=== PATIENT | female | born 1955 | race Caucasian/White ===

== ENCOUNTER 2018-04-22 08:28 | Day surgery (SDC) | payer MEDICAID ==
--- NOTE | 2018-04-19 11:00 | PREOPHP ---
DATE OF ADMISSION: 04/22/2018 HISTORY OF PRESENT ILLNESS: The patient is a 63-year-old female in overall good health, who recently had a breast imaging studies. This revealed in the left breast in the lower central area at 5 o'clock approximately 6 cm from the nipple, was an area of calcifications extending approximately 2 cm and ultrasound revealed a mass with calcifications. 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 The patient is scheduled to undergo excision biopsy with preoperative needle localization. MEDICATIONS: None. ALLERGIES: None. PAST SURGICAL HISTORY: Total abdominal hysterectomy and bilateral salpingo- oophorectomy in 2004. REVIEW OF SYSTEMS: 5, para 5. PHYSICAL EXAMINATION: GENERAL: The patient is 5 feet 1 inch, 135 pounds with normal vital signs. HEENT: Within normal limits. LUNGS: Clear. HEART: Regular rhythm. The breasts are full and ptotic. ABDOMEN: There is no palpable mass in either breast. There is no axillary or supraclavicular lymphadenopathy. PELVIC/RECTAL: per primary care EXTREMITIES: without edema NEUROLOGIC: physiologic IMPRESSION: Left breast ductal carcinoma in situ. PLAN: Full discussion has been held with the patient regarding the nature ofher condition and the nature of the surgery, indications, alternatives, options and risks including bleeding, infection, need for additional surgery based on final pathology, need for additional treatments based on final pathology, scarring, distortion of the breast, etc. All questions have been answered. The patient understands and agrees to proceed as an outpatient under general anesthesia with left breast biopsy with preoperative needle localization. Dictated By: NATE BENNETT MD DS/CONOR Conf#: [id number] DID#: [id number] CC: NATE BENNETT MD;*EndCC* MTDD
[2018-04-21 17:22] VITALS: BMI 23.6
[2018-04-22] VITALS (16 sets, daily range): BP systolic 128–160; BP diastolic 61–84; PULSE 55–79; RESP 15–20; Ht 157.5 cm; Wt 58.6 kg
[~2018-04-22] VITALS: Ht 157.5 cm; Wt 58.6 kg
[~2018-04-22 08:28] MED LIST: CEFAZOLIN 2 GM in SOD CHLORIDE 0.9% 50 ML IVPB SCH; SOD CHLORIDE 0.9% 1,000 ML IV SCH
--- NOTE | 2018-04-22 10:28 | HPN ---
Date/Time of Note Date/Time of Note DATE: 04/22/18 TIME: 10:28 Interval H&P Admission Note Pt. seen H&P reviewed: No system changes NATE BENNETT Apr 22, 2018 10:28
[2018-04-22] MEDS ORDERED: FENO145T37 PO (11:18)
[2018-04-22] MEDS ORDERED: FLUT16SP17 NASAL (11:18)
[2018-04-22] MEDS ORDERED: ISOSULFAN BLUE 1% 5 ML INJ SC ONE (15:26)
--- NOTE | 2018-04-22 15:26 | PREAC ---
Date/Time of Note Date/Time of Note DATE: 04/22/18 TIME: 15:24 Anesthesia Eval and Record Evaluation Time Pre-Procedure Interview DATE: 04/22/18 TIME: 15:24 Age 63 Sex female NPO: 8 hrs Preoperative diagnosis breast mass - ductal carcinoma Planned procedure excision of breast mass Past Medical History Past Medical History: Includes Cardio: Dyslipidemia Endo: Diabetes Surgery & Anesthesia Issues No known issue Meds Anticoagulation: No Beta Sonia within 24 hr: No Reason Beta Sonia not given: Pt. not on B-Sonia Reported Medications Fluticasone Propionate* (Fluticasone Propionate* Nasal) 50 Mcg/[place] - 16 Gm [place].susp, 1 SPRAY NASAL BID, #1 BOTTLE TO EACH NOSTRIL 04/22/18 Fenofibrate Nanocrystallized* (Fenofibrate*) 145 Mg Tablet, 145 MG PO DAILY, TAB 04/22/18 Current Medications Sodium Chloride 1,000 ml @ 75 mls/hr [id number] IV ; Start 04/22/18 at 06:00; Stop 04/22/18 at 23:00 Meds reviewed: Yes Allergies Coded Allergies: No Known Allergies (Verified Allergy, Unknown, 04/22/18) Allergies Reviewed: Yes Labs/Studies Labs Reviewed: Reviewed by anesthesiologist test: N/A Pre-procedure Exam Last vitals Vital Signs Date Temp Pulse Resp B/P (MAP) Pulse Ox O2 O2 Flow FiO2 Time Delivery Rate 04/22/18 97.1 55 16 128/61 96 12:33 (83) Airway: Adequate mouth opening, Adequate thyromental dist Mallampati: Mallampati IV Teeth: Normal Lung: Normal Heart: Normal ASA Physical Status ASA physical status: 2 Emergency: None Pre-operative Attestations Prior to commencing anesthesia and surgery, the patient was re-evaluated, there was verification of: *The patient's identity *The results of appropriate recent lab work and preoperative vital signs *The above evaluation not changing prior to induction *Anesthetic plan, risk benefits, alternative and complications discussed with patient/family; questions answered; patient/family understands, accepts and wishes to proceed. LETA PERRY DO Apr 22, 2018 15:26
[2018-04-22] MEDS ORDERED: LABETALOL HCL 20MG INJ IV PRN (15:30)
[2018-04-22] MEDS ORDERED: OXYCODONE/ACETAMINOPHEN (5/325) TAB PO PRN (15:30)
[2018-04-22] MEDS ORDERED: hydrALAzine 20 MG INJ IV PRN (15:30)
[2018-04-22] MEDS ORDERED: ONDANSETRON 4 MG INJ IV PRN (15:30)
[2018-04-22] MEDS ORDERED: PROPOFOL 20 ML ONE (15:48)
[2018-04-22] MEDS ORDERED: LIDOCAINE 2% (SDV) 5 ML INJ ONE (15:48)
[2018-04-22] MEDS ORDERED: CEFAZOLIN 1 GM INJ ONE (15:58)
[2018-04-22] MEDS ORDERED: FENTAnyl 50 MCG/ML VIAL ONE (15:59)
[2018-04-22] MEDS ORDERED: ROPIVACAINE 0.2% 20 ML VIAL ONE (16:28)
--- NOTE | 2018-04-22 16:33 | SIPON ---
Date/Time of Note Date/Time of Note DATE: 04/22/18 TIME: 16:32 Operative Report Preoperative Diagnosis ductal carcinoma in situ left breast Postoperative Diagnosis same Operation/Procedure Performed left breast biopsy with pre-op needle localization Surgeon see signature line dietary assistant none Anesthesia: general Estimated blood loss: minimal Transfusion Required none Specimen left breast tissue Grafts/Implants none Complications none NATE BENNETT Apr 22, 2018 16:33
[2018-04-22] MEDS ORDERED: ONDANSETRON 4 MG INJ ONE (16:41)
--- NOTE | 2018-04-22 16:55 | PAC ---
Date/Time of Note Date/Time of Note DATE: 04/22/18 TIME: 16:55 Post-Anesthesia Notes Post-Anesthesia Note Last documented vital signs Vital Signs Date Temp Pulse Resp B/P (MAP) Pulse Ox O2 O2 Flow FiO2 Time Delivery Rate 04/22/18 98 80 16 123/59 97 1655 Activity: WNL Respiratory function: WNL Cardiovascular function: WNL Mental status: Baseline Pain reasonably controlled: Yes Hydration appropriate: Yes Nausea/Vomiting absent: Yes LETA PERRY DO Apr 22, 2018 16:55
--- NOTE | 2018-04-22 17:03 | OPR ---
DATE OF OPERATION: 04/22/2018 SURGEON: Dr. Nate Menchaca. PREPRESS STRIPPER: None. ANESTHESIOLOGIST: Dr. Joey Hubbard. TYPE OF ANESTHESIA: General. PREOPERATIVE DIAGNOSIS: Ductal carcinoma in situ, left breast. POSTOPERATIVE DIAGNOSIS: Ductal carcinoma in situ, left breast. OPERATION PERFORMED: Left breast partial mastectomy with preoperative needle localization. DESCRIPTION OF PROCEDURE: The patient was taken to the operating room and under general anesthesia with sequential compression device stockings in place, she was prepped and draped in the usual fashion. The lesion was located at approximately 5 o'clock, 6 cm from the nipple with a 2 cm mass by ultrasound with core biopsy revealing DCIS. A curvilinear incision was made in the inferior breast tissue. Hemostasis was achieved with cautery. Flaps were dissected circumferentially and the wire brought into the field. The appropriate sector of breast tissue was removed with hemostasis achieved with cautery and with suture markers orienting the specimen anterior, medial and superior. The specimen was given for specimen radiography and then for pathology. The field was irrigated and hemostasis was secure. The incision was closed with interrupted 3-0 Vicryl deep dermal subcutaneous sutures followed by continuous 4-0 Monocryl subcuticular suture. Mastisol and 1/2-inch Steri-Strips were applied, followed by dry sterile dressing. Final sponge and needle counts were correct. The patient tolerated the procedure well and left the operating room in good condition. Dictated By: NATE GUILLORY/CONOR Conf#: [id number] DID#: [id number] MTDD
[2018-04-22] MEDS: HYDROmorphONE 1 MG/5 ML IV SYRINGE IV PRN ×2 (17:23→17:43)
== END 2018-04-22 18:46 | disposition home or self-care (01) ==
LOC: SDS 08:28
PROVIDERS: ATTEND Surgery
DX: D05.12 Intraductal carcinoma in situ of left breast (principal); E78.5 Hyperlipidemia, unspecified; E11.9 Type 2 diabetes mellitus without complications
CPT/HCPCS: 19301; 88307; J0690; J1170; J2405; J2795; J3010; Z7512; Z7610; Q9968

== ENCOUNTER 2018-06-29 10:25 | Day surgery (SDC) | payer MEDICAID ==
--- NOTE | 2018-06-27 15:18 | PREOPHP ---
DATE OF ADMISSION: 06/29/2018 Scheduled for outpatient surgery 06/29/2018. HISTORY OF PRESENT ILLNESS: The patient is a 63-year-old female in overall good health who underwent surgery 04/22/2018 involving left breast biopsy with preoperative needle localization with a preoperative diagnosis of ductal carcinoma in situ. Postoperatively, pathology revealed ductal carcinoma in situ, but also invasive ductal carcinoma that was within the specimen measuring 0.4 cm in greatest diameter. The patient is now scheduled to undergo left axillary sentinel lymph node biopsy for staging. PAST MEDICAL HISTORY: MEDICATIONS: None. ALLERGIES: None. PAST SURGICAL HISTORY: Total abdominal hysterectomy and bilateral salpingo- oophorectomy 2004, left breast biopsy 04/22/2018. REVIEW OF SYSTEMS: 5, para 5. PHYSICAL EXAMINATION: GENERAL: The patient is 5 feet 1 inches, 135 pounds. Stable vital signs. HEENT: Within normal limits. LUNGS: Clear. HEART: Regular rhythm. The breasts are moderately large and ptotic. There is a healing incision in the lower outer quadrant of the left breast. Right breast unremarkable. There is no palpable axillary or supraclavicular lymphadenopathy. ABDOMEN: Soft. Pelvic and rectal per primary care. EXTREMITIES: Without edema. NEUROLOGIC: Physiologic. ASSESSMENT: Invasive ductal carcinoma of the left breast as well as ductal carcinoma in situ. PLAN: Left axillary sentinel lymph node biopsy. After full discussion with the patient regarding the nature of her condition, the nature of the surgery, indications, alternatives, options and risks including bleeding, infection, need for additional treatments based on final pathology, possible need for a drain, neuritis and neuralgia, etc. All questions have been answered. The patient understands and agrees to proceed. Dictated By: NATE GUILLORY/CONOR Conf#: [id number] DID#: [id number] EDDA
[~2018-06-29] VITALS: Ht 154.9 cm; Wt 65.5 kg
[2018-06-29] VITALS (13 sets, daily range): BP systolic 109–143; BP diastolic 41–65; PULSE 57–72; RESP 13–23; Ht 154.9 cm; Wt 65.5 kg
--- NOTE | 2018-06-29 09:59 | PREAC ---
Date/Time of Note Date/Time of Note DATE: 06/29/18 TIME: 09:58 Anesthesia Eval and Record Evaluation Time Pre-Procedure Interview DATE: 06/29/18 TIME: 09:58 Age 63 Sex female NPO: 8 hrs Preoperative diagnosis ductal carcinoma of the left breast Planned procedure left axillary sentinel lymph node biopsy Past Medical History Past Medical History: Includes Cardio: Dyslipidemia Endo: Other (prediabetic) Surgery & Anesthesia Issues No known issue Meds Anticoagulation: No Beta Sonia within 24 hr: No Reason Beta Sonia not given: Pt. not on B-Sonia Reported Medications Fluticasone Propionate* (Fluticasone Propionate* Nasal) 50 Mcg/[place] - 16 Gm [place].susp, 1 SPRAY NASAL BID, #1 BOTTLE TO EACH NOSTRIL 04/22/18 Fenofibrate Nanocrystallized* (Fenofibrate*) 145 Mg Tablet, 145 MG PO DAILY, TAB 04/22/18 Current Medications Cefazolin Sodium/ Dextrose 50 ml @ 100 mls/hr PREOP IVPB ; Start 06/29/18 at 06:00; Stop 06/29/18 at 17:00 Sodium Chloride 1,000 ml @ 75 mls/hr [id number] IV ; Start 06/29/18 at 06:00; Stop 06/29/18 at 17:00 Meds reviewed: Yes Allergies Coded Allergies: No Known Allergies (Verified Allergy, Unknown, 06/29/18) Allergies Reviewed: Yes Labs/Studies Labs Reviewed: Reviewed by anesthesiologist test: N/A Pre-procedure Exam Airway: Adequate mouth opening, Adequate thyromental dist Mallampati: Mallampati II Teeth: Normal Lung: Normal Heart: Normal ASA Physical Status ASA physical status: 2 Emergency: None Planned Anesthetic General/MAC: LMA Planned Pain Management Parenteral pain med, Local by surgeon Pre-operative Attestations Prior to commencing anesthesia and surgery, the patient was re-evaluated, there was verification of: *The patient's identity *The results of appropriate recent lab work and preoperative vital signs *The above evaluation not changing prior to induction *Anesthetic plan, risk benefits, alternative and complications discussed with patient/family; questions answered; patient/family understands, accepts and wishes to proceed. RENATO CARRIZALES June 29, 2018 09:59
[~2018-06-29 10:25] MED LIST changes: -CEFAZOLIN 2 GM in SOD CHLORIDE 0.9% 50 ML IVPB SCH; +CEFAZOLIN 2 GM/50 ML (PMX) 50 ML IVPB SCH; +FENO145T37 PO; +FLUT16SP17 NASAL
[2018-06-29] MEDS ORDERED: MEPERIDINE 25 MG INJ IV PRN (11:00)
[2018-06-29] MEDS ORDERED: ONDANSETRON 4 MG INJ IV PRN (11:00)
[2018-06-29] MEDS ORDERED: OXYCODONE/ACETAMINOPHEN (5/325) TAB PO PRN ×2 (11:00)
[2018-06-29] MEDS ORDERED: HYDROmorphONE 1 MG/5 ML IV SYRINGE IV PRN ×3 (11:00)
[2018-06-29] MEDS ORDERED: ISOSULFAN BLUE 1% 5 ML INJ SC ONE (11:35)
[2018-06-29] MEDS ORDERED: LIDOCAINE 2% (SDV) 5 ML INJ ONE (11:52)
[2018-06-29] MEDS ORDERED: MIDAZOLAM 1 MG/ML 2 ML INJ ONE (11:52)
[2018-06-29] MEDS ORDERED: CEFAZOLIN 1 GM INJ ONE (11:52)
[2018-06-29] MEDS ORDERED: PROPOFOL 20 ML ONE (11:52)
[2018-06-29] MEDS ORDERED: FENTAnyl 50 MCG/ML VIAL ONE (11:52)
--- NOTE | 2018-06-29 12:23 | HPN ---
Date/Time of Note Date/Time of Note DATE: 06/29/18 TIME: 12:22 Interval H&P Admission Note Pt. seen H&P reviewed: No system changes NATE BENNETT June 29, 2018 12:22
[2018-06-29] MEDS ORDERED: ONDANSETRON 4 MG INJ ONE (12:39)
[2018-06-29] MEDS ORDERED: DEXAMETHASONE 4 MG/ML 5 ML INJ ONE (12:39)
[2018-06-29] MEDS ORDERED: METOCLOPRAMIDE 10 MG INJ ONE (12:39)
[2018-06-29] MEDS ORDERED: FAMOTIDINE 20 MG INJ ONE (12:39)
--- NOTE | 2018-06-29 13:34 | SIPON ---
Date/Time of Note Date/Time of Note DATE: 06/29/18 TIME: 13:33 Operative Report Preoperative Diagnosis carcinoma left breast Postoperative Diagnosis same Operation/Procedure Performed left axillary sentinel lymph node biopsy Surgeon see signature line assistant director of security none Anesthesia: general Estimated blood loss: none Transfusion Required none Specimen left axillary sentinel lymph nodes Grafts/Implants none Complications none NATE BENNETT June 29, 2018 13:34
--- NOTE | 2018-06-29 13:37 | PAC ---
Date/Time of Note Date/Time of Note DATE: 06/29/18 TIME: 13:36 Post-Anesthesia Notes Post-Anesthesia Note Last documented vital signs BP 140/44 HR 72 TEMP 98.0 SPO2 100 RR 16 Vital Signs Date Temp Pulse Resp B/P (MAP) Pulse Ox O2 O2 Flow FiO2 Time Delivery Rate 06/29/18 98.1 57 16 143/65 100 Room Air 11:25 (91) Activity: WNL Respiratory function: WNL Cardiovascular function: WNL Mental status: Baseline Pain reasonably controlled: Yes Hydration appropriate: Yes Nausea/Vomiting absent: Yes RENATO CARRIZALES June 29, 2018 13:37
--- NOTE | 2018-06-29 17:01 | OPR ---
DATE OF OPERATION: 06/29/2018 SURGEON: Nate Hardwick MD HUMAN RESOURCES MANAGER MANUFACTURING: None. ANESTHESIOLOGIST: Nabil Scott CRNA TYPE OF ANESTHESIA: General. PREOPERATIVE DIAGNOSIS: Invasive ductal carcinoma, left breast. POSTOPERATIVE DIAGNOSIS: Invasive ductal carcinoma, left breast. OPERATION PERFORMED: Left axillary sentinel lymph node biopsy. INDICATIONS: The patient previously had an area of ductal carcinoma in situ in the left breast that was resected as a partial mastectomy. Within the specimen was found a 4 mm invasive ductal carcinoma. The patient now returns to surgery for sentinel axillary lymph node biopsy. DESCRIPTION OF PROCEDURE: The patient was taken to the operating room and under general anesthesia with sequential compression device stockings in place, she was prepped and draped in the usual fashion. Before prepping and draping, 3 mL of Lymphazurin was injected at 2 o'clock at the areolar border in the dermal layer. A vertical curvilinear left axillary incision was made, achieving hemostasis with cautery and incising the clavipectoral fascia. The blue-green dye was readily identified with several adjacent lymph nodes. This area was resected using the LigaSure electrosurgical device. The pathologist confirmed the presence of several lymph nodes within the specimen. The field was irrigated and hemostasis was completely secured. In view of the limited dissection, I did not think a drain was necessary. The clavipectoral fascia was closed with interrupted 3-0 Vicryl as was the subcutaneous tissues. Skin was closed with continuous 4-0 Monocryl subcuticular suture. Mastisol and 1/2-inch Steri-Strips were applied, followed by dry sterile dressing. Final sponge and needle counts were correct. The patient tolerated the procedure well and left the operating room in good condition. Dictated By: NATE GUILLORY/CONOR Conf#: [id number] DID#: [id number] MTDTanya
== END 2018-06-29 16:45 | disposition home or self-care (01) ==
LOC: SDS 10:25
PROVIDERS: ATTEND Surgery
DX: C50.912 Malignant neoplasm of unspecified site of left female breast (principal); D36.0 Benign neoplasm of lymph nodes; E78.5 Hyperlipidemia, unspecified; R73.03 Prediabetes; R94.31 Abnormal electrocardiogram [ECG] [EKG]
CPT/HCPCS: 38525; 80053; 85025; 85610; 85730; 93005; J0690; J1100; J1170; J2175; J2250; J2405; J2765; J3010; Z7512; Z7610; 88307; Q9968

== ENCOUNTER 2018-08-11 20:52 | Emergency (ER) | payer MEDICAID ==
[~2018-08-11] VITALS: Ht 162.6 cm; Wt 75.0 kg
[~2018-08-11 20:52] MED LIST changes: -CEFAZOLIN 2 GM/50 ML (PMX) 50 ML IVPB SCH; -SOD CHLORIDE 0.9% 1,000 ML IV SCH
[2018-08-11 20:56] VITALS: Ht 162.6 cm; Wt 75.0 kg
[2018-08-11] MEDS ORDERED: SOD CHLORIDE 0.9% 1,000 ML IV STA (21:52)
[2018-08-11] MEDS ORDERED: morphine 4 MG/ML VIAL IV STA (21:52)
[2018-08-11] MEDS ORDERED: LACTATED RINGER'S 1,000 ML IV STA (21:52)
[2018-08-11] MEDS ORDERED: ONDANSETRON 4 MG INJ IV STA (21:52)
[2018-08-12] MEDS ORDERED: ONDA4TAB14 PO (00:05)
[2018-08-12] MEDS ORDERED: LOPE2CAP PO (00:05)
[2018-08-12 00:18] VITALS: BP 144/81; PULSE 81; RESP 18
--- NOTE | 2018-08-12 02:28 | ERD ---
ER Documentation Chief Complaint Chief Complaint BIB RA FROM HOME FOR ABD. PAIN, DIARRHEA, HX OF BREAST CA HPI 63-year-old female brought in by ambulance from home for abdominal cramping with diarrhea, nausea, and vomiting. Patient has a history of breast cancer status post left breast surgery. She was recently started on chemo about 8 days ago. This was her first chemo session. After this she has not been feeling well and has been unable to get any further chemotherapy due to her reaction of nausea, vomiting, and diarrhea. She was recently seen at the cancer center a few days ago noted to have the symptoms. She did not receive chemo but instead received IV hydration and a "injection" to increase her white blood cells. Patient denies any fevers or chills. She is complaining of a severe headache, throbbing, diffuse, 10 out of 10. This headache is not new but has been progressively worsening. She has not been able to keep any food down. Vomiting is nonbloody and nonbilious. Diarrhea is nonbloody. She only has abdominal cramping prior to diarrhea but denies any abdominal pain currently. The pain seems to be colicky, cramping, severe when present. No dysuria or hematuria. No chest pain or shortness of breath. Denies any vision disturbance, focal weakness or numbness. ROS All systems reviewed and are negative except as per history of present illness. Medications Home Meds Active Scripts Ondansetron (Ondansetron Odt) 4 Mg Tab.rapdis, 4 MG PO Q6H PRN for NAUSEA AND/OR VOMITING, #20 TAB Prov:VIVIANA QUINTANA MD 08/12/18 Loperamide Hcl* (Imodium*) 2 Mg Capsule, 2 MG PO .AFTER EA LOOSE BM PRN for DIARRHEA, #10 TAB Prov:VIVIANA QUINTANA MD 08/12/18 Discontinued Reported Medications Fluticasone Propionate* (Fluticasone Propionate* Nasal) 50 Mcg/[place] - 16 Gm [place].susp, 1 SPRAY NASAL BID, #1 BOTTLE TO EACH NOSTRIL 04/22/18 Fenofibrate Nanocrystallized* (Fenofibrate*) 145 Mg Tablet, 145 MG PO DAILY, TAB 04/22/18 Allergies Allergies: Coded Allergies: No Known Allergies (Verified Allergy, Unknown, 06/29/18) PMhx/Soc History of Surgery: Yes (Left breast surgery) Anesthesia Reaction: No Hx Neurological Disorder: No Hx Respiratory Disorders: No Hx Cardiac Disorders: Yes (htn, hld) Hx Psychiatric Problems: No Hx Miscellaneous Medical Probl: Yes (left breast cancer) Hx Alcohol Use: No Hx Substance Use: No Hx Tobacco Use: No Smoking Status: Never smoker FmHx Family History: No diabetes Physical Exam Vitals Vital Signs Date Temp Pulse Resp B/P (MAP) Pulse Ox O2 O2 Flow FiO2 Time Delivery Rate 08/12/18 98.6 81 18 144/81 100 Room Air 00:18 (102) 08/11/18 98.6 78 18 152/70 100 20:56 (97) Physical Exam Const: Appears to be in distress due to nausea, appears fatigued Head: Atraumatic Eyes: Normal Conjunctiva, PERRLA, EOMI ENT: Dry mucous membranes. Normal External Ears, Nose and Mouth. Neck: Full range of motion. No meningismus. Resp: Clear to auscultation bilaterally Cardio: Regular rate and rhythm, no murmurs. 2+ distal pulses Abd: Soft, non tender, non distended. No masses. Normal bowel sounds Skin: No petechiae or rashes Back: No midline or flank tenderness Ext: No cyanosis, or edema Neur: Awake and alert, normal speech, oriented, moving all extremities Psych: Normal Mood and Affect Result Diagram: 08/11/189 08/11/18 221 Results 24 hrs Laboratory Tests Test 08/11/18 22:19 White Blood Count 13.5 10^3/ul Red Blood Count 4.39 10^6/ul Hemoglobin 11.9 g/dl Hematocrit 35.7 % Mean Corpuscular Volume 81.3 fl Mean Corpuscular Hemoglobin 27.1 pg Mean Corpuscular Hemoglobin Concent 33.3 g/dl Red Cell Distribution Width 13.2 % Platelet Count 295 10^3/UL Mean Platelet Volume 10.0 fl Immature Granulocytes % 3.200 % Neutrophils % % Segmented Neutrophils % (Manual) 49 % Band Neutrophils % (Manual) 14 % Lymphocytes % (Manual) 23 % Reactive Lymphocytes % (Manual) 3 % Monocytes % (Manual) 10 % Eosinophils % % Eosinophils % (Manual) 1 % Basophils % % Nucleated Red Blood Cells % 0.3 /100WBC Immature Granulocytes # 0.430 10^3/ul Neutrophils # 10^3/ul Neutrophils # (Manual) 6.9 10^3/ul Band Neutrophils # 1.8 10^3/ul Lymphocytes (Manual) 3.1 10^3/ul Reactive Lymphocytes # 0.4 10^3/ul Monocytes # (Manual) 1.3 10^3/ul Eosinophils # 10^3/ul Basophils # 10^3/ul Platelet Estimate NORMAL Giant Platelets 1 % Polychromasia 1+ Anisocytosis 2+ Microcytosis 1+ Sodium Level 142 mmol/L Potassium Level 4.0 mmol/L Chloride Level 108 mmol/L Carbon Dioxide Level 24 mmol/L Anion Gap 10 Blood Urea Nitrogen 12 mg/dl Creatinine 0.48 mg/dl Est Glomerular Filtrat Rate mL/min > 60 mL/min Glucose Level 135 mg/dl Calcium Level 9.4 mg/dl Total Bilirubin 0.4 mg/dl Direct Bilirubin 0.00 mg/dl Indirect Bilirubin 0.4 mg/dl Aspartate Amino Transf (AST/SGOT) 37 IU/L Alanine Aminotransferase (ALT/SGPT) 67 IU/L Alkaline Phosphatase 106 IU/L Troponin I < 0.012 ng/ml Total Protein 7.9 g/dl Albumin 4.3 g/dl Globulin 3.60 g/dl Albumin/Globulin Ratio 1.19 Lipase 36 U/L Current Medications Medications Dose Sig/Naga Start Time Status Last (Trade) Ordered Route PRN Stop Time Admin Dose Reason Admin Sodium 1,000 ml @ Q1H STAT 08/11/18 DC 08/11/18 Chloride 1,000 mls/hr IV 21:52 08/11/18 23:00 22:51 Lactated 1,000 ml @ Q1H STAT 08/11/18 DC Ringer's 1,000 mls/hr IV 21:52 08/11/18 22:51 Morphine 4 mg ONCE STAT 08/11/18 DC 08/11/18 Sulfate IV 21:52 08/11/18 23:00 (morphine) 21:55 Ondansetron 4 mg ONCE STAT 08/11/18 DC 08/11/18 HCl (Zofran IV 21:52 08/11/18 21:52 Inj) 21:55 Procedures/MDM EMERGENT LABS AND DIAGNOSTIC STUDIES: Lab Results above were reviewed and interpreted by me. CBC: Leukocytosis, doubt infection. No significant anemia. Platelets normal CMP: No evidence of clinically significant electrolyte abnormality, acidosis, renal failure, hypoglycemia, liver disease, or biliary obstruction Lipase: no evidence of pancreatitis Troponin within normal limits, not indicative of cardiac ischemia 12-lead EKG was interpreted by Ady Quintana MD: Normal Sinus Rhythm with ventricular rate of 66 beats per minute Normal axis Normal intervals No acute ST or T wave changes suggestive of acute ischemia or STEMI. Radiology Results as interpreted by Radiology below were reviewed by Allan Quintana MD: CT brain shows no acute or significant abnormalities Chest x-ray is normal Initial Nursing notes reviewed. Previous Medical Records requested via the Electronic Health Record. EMERGENCY DEPARTMENT COURSE / MEDICAL DECISION MAKING: Patient is presenting with postchemotherapy generalized weakness, nausea, vomiting and diarrhea. She is afebrile and hemodynamically stable. Work-up did not show any significant abnormalities other than mild leukocytosis. However my suspicion for infection is low. There is no signs of acute surgical abdomen on my exam. Patient was treated with IV fluids, IV antiemetics. Upon reevaluation, she is feeling and looking much better. She is able to tolerate fluids by mouth. Repeat abdominal exam is benign. I do not feel any abdominal imaging is indicated at this time. However CT head was ordered given her history of cancer and severe headache. there are no signs of intracranial metastases. If her headaches do continue, she was advised to seek outpatient MRI by her primary physicians. At this time the patient feels comfortable going home. Prescription for antiemetics and antidiarrheals will be given. I advised she call her oncologist tomorrow to discuss her reaction to the chemotherapy and for further treatment plan. If any of her symptoms are to worsen, she was encouraged to return to the ER immediately. Patient feels comfortable with the discharge plan. All questions answered. Patient's blood pressure was elevated (>120/80) but appears stable without evidence of hypertensive emergency or urgency. The patient was counseled about the risks of hypertension and urged to pursue outpatient monitoring and therapy within a week with their primary care physician. Departure Diagnosis: Primary Impression: Nausea, vomiting and diarrhea Additional Impression: Gastroenteritis due to antineoplastic chemotherapy Condition: Stable Patient Instructions: Vomiting And Diarrhea, Nonspecific (Adult) VIVIANA QUINTANA MD Aug 12, 2018 02:28
== END 2018-08-12 00:21 | disposition home or self-care (01) ==
LOC: E/R 20:52
DX: K52.9 Noninfective gastroenteritis and colitis, unspecified (principal); I10 Essential (primary) hypertension; R51 Headache; C50.912 Malignant neoplasm of unspecified site of left female breast
CPT/HCPCS: 70450; 71045; 80053; 83690; 84484; 85025; 93005; J2270; J2405; J7030; J7120; 36415; 96374; 96375

== ENCOUNTER 2018-12-13 09:59 | Emergency (ER) | payer MEDICAID ==
[~2018-12-13] VITALS: Wt 25.0 kg
[~2018-12-13 09:59] MED LIST changes: +ACET-141 PO; -FENO145T37 PO; -FLUT16SP17 NASAL; +HYDR-3980 PO; +IBUP800T48 PO; +LOPE2CAP PO; +ONDA4TAB14 PO
[2018-12-13] MEDS ORDERED: HYDROmorphONE 1 MG/ML SYG IV STA (12:07)
[2018-12-13] MEDS ORDERED: DIPHENHYDRAMINE 50 MG INJ IV STA (12:07)
[2018-12-13] MEDS ORDERED: PROCHLORPERAZINE 10 MG INJ IV STA (12:07)
[2018-12-13] MEDS ORDERED: IOHEXOL 300MG/ML 150 ML BTL ONE (14:03)
[2018-12-13] MEDS ORDERED: SOD CHLORIDE 0.9% 100 ML ONE (14:03)
[2018-12-13 17:47] VITALS: BP 110/61; PULSE 59; RESP 16
== END 2018-12-13 17:48 | disposition home or self-care (01) ==
LOC: E/R 09:59
DX: R51 Headache (principal); I10 Essential (primary) hypertension; Z85.3 Personal history of malignant neoplasm of breast
CPT/HCPCS: 36415; 70470; 71260; 74177; 80048; 85025; 85610; 85730; 96374; 96375; J0780; J1170; J1200; Q9967; Z7502; Z7610